=== PATIENT | male | born 1995 | race Caucasian/White ===

== ENCOUNTER 2025-06-03 19:16 | Emergency (ER) | payer BC, SELFPAY ==
--- NOTE | ~2025-06-03 | MR_ITS ---
CLINICAL HISTORY: back pain radiate to right leg, urinary retention MR lumbar spine without gadolinium Comparison: None Findings: L4-5 and L5-S1 disc compression with right-sided disc herniation resulting in right-sided foraminal stenosis. No acute fracture or pathologic bone lesion. Conus medullaris within normal limits. No significant degenerative change. Paraspinous musculature intact. IMPRESSION: L4-5 and L5-S1 disc compression with right-sided disc herniation resulting in right-sided foraminal stenosis This document has been electronically signed by: Jose Luis Peters MD on 06/03/2025 22:55:11
--- NOTE | 2025-06-03 19:38 | ED_ITS ---
HPI - General Adult General Chief complaint: Back Pain/Injury Stated complaint: pcp called back pain, burning sens on legs, numb Time Seen by Provider: 06/03/25 20:24 Source: patient Mode of arrival: ambulatory Limitations: no limitations History of Present Illness ED Provider: DR. Marinelli HPI narrative: This is a 30-year-old male sent by his PCP for evaluation of low back pain started few months ago, past today the pain is becoming severe, patient noted today that he has been having difficulty urinating , and increase numbness sensation radiating down to the right lower extremity. Patient declined any back trauma, no fever, no chills, no history of IV drug abuse, No history of back surgery. Patient declined risk of STDs, no urethral discharge , no history of kidney stones. Related Data Previous Rx's ?Medication ?Instructions ?Recorded dexamethasone 2 mg tablet 2 mg PO BID #4 tabs 06/04/25 Allergies Allergy/AdvReac Type Severity Reaction Status Date / Time ibuprofen (From ADVIL) Allergy Intermediate STOMACH Verified 06/03/25 19:41 PAIN latex (LATEX) Allergy Intermediate RASH Verified 06/03/25 19:41 Penicillins Allergy Hives Verified 06/03/25 19:41 Review of Systems 2 Review of Systems: All other systems are reviewed and are negative Constitutional: Reports as per HPI and Reports no additional constitutional complaints Eyes: Reports as per HPI and Reports no additional eye complaints Reports system reviewed and no additional complaints, except as documented Cardiovascular: Reports as per HPI and Reports no additional cardiovascular complaints Respiratory: Reports as per HPI and Reports no additional respiratory complaints Gastrointestinal: Reports as per HPI and Reports no additional gastrointestinal complaints Genitourinary: Reports no additional female genitourinary complaints Musculoskeletal: Reports no additional musculoskeletal complaints Skin/Breast: Reports system reviewed and no additional complaints, except as docu Psychiatric: Reports no additional psychiatric complaints Endocrine: Reports no additional endocrine complaints Hematologic/Lymphatic: Reports no additional hematologic/lymphatic complaints Allergic/Immunologic: Reports no additional allergic/immunologic complaints Reports system reviewed and no additional complaints, except as documented and Reports Abnormal speech present [facility] Social History Social History Smoked in Last 30 Days: No Use of substances other than those prescribed or required for medical reasons: No Advance Directives: No Advance Directives Information Provided: No Do you have a plan to hurt others: No Plan Physical Exam ED Vital Signs: Vital Signs - 24 hr 06/03/25 19:39 06/03/25 19:55 06/03/25 21:26 Temperature 98.5 F 97.5 F 98.3 F Pulse Rate 96 98 93 Respiratory Rate 18 18 16 Blood Pressure 131/69 108/79 104/83 Pulse Oximetry 99 99 98 Oxygen Delivery Method Room Air Room Air 06/04/25 00:32 Temperature 97.9 F Pulse Rate 86 Respiratory Rate 16 Blood Pressure 120/84 Pulse Oximetry 99 Oxygen Delivery Method Room Air BMI result Body Mass Index 26.6 Vital signs have been reviewed and appear to be correct. Blood pressure elevated. Heart rate normal. Respiratory rate normal. Temperature normal. Oxygen saturation normal. Appearance: Alert. Oriented X3. No acute distress. Head: Normal external exam. Normocephalic. Atraumatic. No Henderson signs noted. No raccoon eyes noted Eyes: PERRLA. EOMI. Conjunctiva and sclera normal. Eyelids normal. ENT: TM's Normal. Pharynx normal. Uvula midline. Moist mucous membranes. No trismus noted. No drooling noted. No muffled voice noted. Neck: Normal inspection. Neck supple. FROM. No adenopathy. Thyroid Normal. No meningeal signs. No neck mass noted. CVS: Normal heart rate and rhythm. Heart sound normal. No murmurs noted. Pulses normal throughout. Respiratory: No respiratory distress. Painless inspiration. Breath sounds normal. No wheezes/rales/rhonchi noted. Chest nontender. No accessory muscle usage noted or decreased air movement noted. Abdomen: Soft and nontender. Bowel sounds normal in all 4 quadrants. No distention noted. No organomegaly noted. No visible injury noted. Back: No CVA tenderness. Full range of motion noted. Skin: Skin warm and dry. Normal skin color. Normal skin turgor. No rashes/lesions/lacerations noted. Extremities: No lower extremity edema. Extremities exhibit normal range of motion. Extremities nontender. Neuro: Mental status: Normal attention, orientation, memory, and affect. Cranial nerves: Pupils are equal, round and reactive to light, EOMI, visual aceves are fall, face is symmetric, facial sensations are normal. Motor examination normal muscle tone, strength to 4 extremities. DTR are +2, planter's are flexor. Sensory exam; normal coordination, no ataxia, gait stable. Cerebellar exam: Zqngpf-dp-ljbz and qchx-ee-aywo is normal. Extrapyramidal system: No tremors, no rigidity with normal facial expressions. Pronator drift not present, perianal sensation is intact. Course Course Course Narrative: RME performed by Claudia Smith PA-C. Patient is a 30 year old assigned male at presenting to the emergency department with low back pain that radiates down his right leg, numbness in his groin, difficulty urinating. Detailed physical exam and review of systems are deferred to the primary products inspectors. Imaging ordered. Patient placed back in the waiting room pending room availability and results. Reevaluation(s) Reevaluation #1: 30-year-old male with 4 months of back pain that recently got worse now is complaining of difficulty urinating and increased subjective numbness and weakness to the right lower extremity. Raise the concern epidural occupying lesion, abscess is not likely but possibly herniated desk, therefore emergent MRI was ordered, MRI was ordered at 08:45. no urinary incontinence, no urinary infection, repeat neuro exam is intact with no deficit, MRI reveals multiple level disc compression with right-sided disc herniation. Patient was given Decadron in the ED will be discharged home on few days of Decadron, will refer to Dr. Wheeler. Time: 00:41 Medications Administered Discontinued Medications Generic Name Dose Route Start Last Admin Trade Name Freq PRN Reason Stop Dose Admin Dexamethasone 10 mg 06/04/25 00:04 06/04/25 00:31 Dexamethasone 2 Mg Tablet PO 06/04/25 00:05 10 mg ONCE ONE Administration Diazepam 5 mg 06/03/25 20:31 06/03/25 20:46 Diazepam 5 Mg Tablet PO 06/03/25 20:32 5 mg ONCE ONE Administration Medical Decision Making Differential Diagnosis Differential Diagnoses: The differential diagnosis associated with the presentation includes ( lumbar radiculopathy, herniated disc, less likely epidural abscess, UTI.) Admission/Observation Consideration of admission/observation: Escalation of care including admission/observation considered Lab Data MDM Lab Attestation statement: I reviewed the patient's lab results. 06/03/25 20:01 06/03/25 20:01 Labs: Lab Results 06/03/25 06/03/25 06/04/25 Range/Units 20:01 20:39 00:05 WBC 7.8 (4.8-10.8) X10*3/uL RBC 4.90 (4.60-5.80) X10*6/uL Hgb 13.8 L (14.0-18.0) g/dl Hct 39.5 L (42.0-52.0) % MCV 80.6 (80.0-98.0) fL MCH 28.2 (27.0-33.0) pg MCHC 34.9 (31.0-36.0) g/dl RDW 12.8 (11.0-16.0) % Plt Count 248 (160-400) X10*3/uL MPV 8.4 L (9.4-12.4) fL Immature Gran % (Auto) 0.3 (0.0-0.4) % Neut % (Auto) 56.0 (45-73) % Lymph % (Auto) 33.0 (20-40) % [place] % (Auto) 9.4 (2-11) % Eos % (Auto) 0.8 (0-4) % Baso % (Auto) 0.5 (0-2) % Lymph # (Auto) 2.6 (1.2-4.9) X10*3/uL [place] # (Auto) 0.7 (0.1-1.2) X10*3/uL Eos # (Auto) 0.1 (0.0-0.4) X10*3/uL Baso # (Auto) 0.0 (0.0-0.2) X10*3/uL Abs Immat Gran (auto) 0.02 (0.00-0.03) X10*3/uL Absolute Neuts (auto) 4.4 (2.0-8.3) x10*3/uL Absolute Nucleated RBC 0.000 (0.0-0.012) X10*3/uL Nucleated RBC % (auto) 0.0 (0.0-0.2) /100WBC Sodium 142 (135-145) mmol/L Potassium 3.5 (3.3-5.1) mmol/L Chloride 109 H (96-108) mmol/L Carbon Dioxide 25 (22-29) mmol/L Anion Gap 12 (12-20) BUN 15 (9-16) mg/dL Creatinine 0.98 (0.5-1.4) mg/dL Estim Creat Clear Calc 115.2 Estimated GFR > 60 POC Glucose 84 (60-115) mg/dL Random Glucose 53 L* (60-115) mg/dL Calcium 9.3 (8.4-10.2) mg/dL Magnesium 2.3 (1.6-2.6) mg/dL Total Bilirubin 0.7 (0.0-1.0) mg/dL AST 31 (5-37) U/L ALT 51 H (0-40) U/L Alkaline Phosphatase 94 (39-117) U/L Total Protein 8.4 H (6.5-8.0) g/dL Albumin 4.7 (3.5-5.0) g/dL Urine Color Yellow Urine Appearance Clear Urine pH 6.0 (5.0-9.0) Ur Specific [place] 1.020 (1.005-1.025) Urine Protein Negative (Neg-Trace) mg/dL Urine Glucose (UA) Negative (Negative) mg/dL Urine Ketones Negative (Negative) mg/dL Urine Blood Negative (Negative) Urine Nitrite Negative (Negative) Ur Leukocyte Esterase Negative (Negative) Independent Interpretation I performed an independent interpretation of an: MRI ( Lumbar spine:L4-5 and L5-S1 disc compression with right-sided disc herniation resulting in right- sided foraminal stenosis) Radiology Impression Discussion of test interpretation with radiology: I have reviewed the radiologist's reading. Discharge Plan Discharge Clinical Impression: Lumbar radiculopathy, Sciatica Patient Disposition: Home, Self-Care Instructions: Lumbar Radiculopathy (ED) Prescriptions: New dexamethasone 2 mg tablet 2 mg PO BID Qty: 4 0RF Referrals: Zaria Albert DO [Primary Care Provider, Family Practice] Lucio Guerrero MD, PhD [Physician, Neuro Spine] Print Language: Indian
[2025-06-03 19:39] VITALS: BP 131/69; PULSE 96; RESP 18; TEMP 36.9; O2SAT 99; BMI 26.6
[2025-06-03 19:55] VITALS: BP 108/79; PULSE 98; RESP 18; TEMP 36.4; O2SAT 99
[2025-06-03 20:07] LABS: MANUAL DIFF FLAG NO
[2025-06-03 20:10] LABS: Hematocrit 39.5 % (42.0-52.0); Hemoglobin 13.8 g/dl (14.0-18.0); Imm Gran Abs Auto 0.02 X10*3/uL (0.00-0.03); Imm Gran Pct Auto 0.3 % (0.0-0.4); Lymphocytes Absolute Auto 2.6 X10*3/uL (1.2-4.9); Mean Corpuscular HGB Conc 34.9 g/dl (31.0-36.0); Mean Corpuscular Hemoglobin 28.2 pg (27.0-33.0); Mean Corpuscular Volume 80.6 fL (80.0-98.0); NRBC Abs Auto 0.000 X10*3/uL (0.0-0.012); NRBC Pct Auto 0.0 /100WBC (0.0-0.2); Platelet Count 248 X10*3/uL (160-400); Red Blood Count 4.90 X10*6/uL (4.60-5.80); White Blood Count 7.8 X10*3/uL (4.8-10.8)
[2025-06-03 20:31] LABS: Alanine Aminotransferase 51 U/L (0-40); Albumin Level 4.7 g/dL (3.5-5.0); Alkaline Phosphatase 94 U/L (39-117); Anion Gap 12 (12-20); Aspartate Amino Transferase 31 U/L (5-37); Blood Urea Nitrogen 15 mg/dL (9-16); Calcium 9.3 mg/dL (8.4-10.2); Carbon Dioxide 25 mmol/L (22-29); Chloride 109 mmol/L (96-108); Creatinine Clr Calc Pharmacy 115.2; Estimated Glomerular Filt Rate > 60; Magnesium 2.3 mg/dL (1.6-2.6); Potassium 3.5 mmol/L (3.3-5.1); Sodium 142 mmol/L (135-145); Total Protein 8.4 g/dL (6.5-8.0)
[2025-06-03 20:44] LABS: Glucose, Whole Blood 84 mg/dL (60-115)
--- NOTE | 2025-06-03 20:48 | PC.NURSE ---
patient to MRI at this time
--- NOTE | 2025-06-03 21:24 | PC.NURSE ---
patient returned from MRI at this time
[2025-06-03 21:26] VITALS: BP 104/83; PULSE 93; RESP 16; TEMP 36.8; O2SAT 98
[2025-06-04 00:13] LABS: Appearance Urine Clear; Glucose Urine UA Negative (Negative); PH 6.0 (5.0-9.0); Specific Gravity - Urine 1.020 (1.005-1.025)
[2025-06-04 00:32] VITALS: BP 120/84; PULSE 86; RESP 16; TEMP 36.6; O2SAT 99
[2025-06-04 01:12] VITALS: BP 120/84; PULSE 86; RESP 16; TEMP 36.6; O2SAT 99
[2025-06-04 10:50] LABS: CT PCR Urine NOT DETECTED (Not Detect.); NG PCR Urine NOT DETECTED (Not Detect.)
== END 2025-06-04 01:13 | disposition home or self-care (01) ==
PROVIDERS: Physician Assistant Medical; Emergency Provider Emergency Medicine; PCP Family Medicine
DX: M54.16 Radiculopathy, lumbar region (principal); M54.30 Sciatica, unspecified side; R39.198 Other difficulties with micturition; M54.50 Low back pain, unspecified; R20.0 Anesthesia of skin; Z79.899 Other long term (current) drug therapy
CPT/HCPCS: 36415; 72148; 80053; 81003; 82947; 83735; 85025; 87491; 87591; 99284; 99285; J8540

== ENCOUNTER → 2025-06-03 20:30 | Outpatient (BNV) | payer BC, SELFPAY | PROVIDERS: Emergency Provider Emergency Medicine; PCP Family Medicine; Visit Provider Student in an Organized Health Care Education/Training Program | DX: M51.26 Other intervertebral disc displacement, lumbar region (principal); M51.27 Other intervertebral disc displacement, lumbosacral region | CPT/HCPCS: 72148 ==

== ENCOUNTER 2025-06-13 10:13 | Outpatient (AMB) | payer BC, SELFPAY ==
--- OUTSIDE RECORDS SUMMARY | 2017-05-26 09:57 | XMS_ITS | Continuity of Care Document ---
Author Organization [facility] Address [address] [place] [address] Phone Care Team Providers Care Kitchen Worker Name Role Phone Nurse, [facility] Unavailable Unavailable Advance Directives Directive Yes / No Effective Date File Name No Information Encounters Encounter Description Practice Location Reason(s) For Visit Diagnoses Date Provider Providers Copied on Encounter [facility], [address], [place], [place], [id number], [place] tel:[phone] [facility] No Information Nurse [facility]. [address] [place], [address], [place]. tel:[phone] Family History Family Member Type Diagnosis Age At Onset No Information Payers Payer name Insurance type Covered democrat ID Authoriza tion(s) No Information Social History Type Description Quantity Date Captured Comments Sex Male Smoking Status No Information Chief Complaint And Reason For Visit No Information Reason For Referral Reason For Referral No Information Plan Of Treatment Date Type Action Status Goal HIV Routine Screening. Due o n due Goal Dental exam. Due on 017 due Goal Tdap. Due on due Goal Depression screening. Due on due Goal Td vaccine. Due on 17 due Goal Influenza vaccine. Due on due History Of Present Illness Encounter Date Complaint History Of Prese nt Illness No Information Functional Status Date Functional Assessmen t No Information Instructions Date Instruction Additional Infor mation No Information Assessments Type Assessment Date No Information Patient Care Teams Name Effective Dates (start - stop) Status Members No Information
--- NOTE | 2025-06-13 10:18 | A.SPINEOV_ITS ---
Intake Visit Reasons: ED f/u 06/03/24 Intake Note: Mr. Eliecer Morgan is here today following up from an ED visit @ [facility] [place]. Rn Admissions Required: No Allergies ibuprofen (From ADVIL) Allergy (Intermediate, Verified 06/03/25 19:41) STOMACH PAIN latex (LATEX) Allergy (Intermediate, Verified 06/03/25 19:41) RASH Penicillins Allergy (Verified 06/03/25 19:41) Hives Assessment & Plan Assessment & Plan (1) Lumbar radiculopathy: Code(s): M54.16 - Radiculopathy, lumbar region Category: Medical Plan Dear colleague, Thank you for referring Madalyn to our office today. He is a pleasant 30-year-old male who comes in today for evaluation of low back pain and shooting pain down his right lower extremity. He reports that this 1st began back in February after he bought a new home began renovating it earlier this year. He states that the pain back in February was much more severe than it is today. Back in February he was experiencing fairly debilitating low back pain and shooting pain down the lateral aspect of his right lower extremity. Today when describing his pain he reports it as more low-grade in nature, and states that it occasionally will radiate into his posterior right buttocks, and down the lateral aspect of his right leg terminating near the knee. He denies any numbness/tingling associated with the pain. He states that the pain is worsened by prolonged sitting or standing, in his relieved by application of a heating pad. He has attempted a course of Decadron, and ibuprofen with only modest relief of his symptoms. He is currently engaging in physical therapy in an attempt to address his symptoms in his also being seen by a chiropractor. He denies any perineal numbness or bowel/bladder incontinence. PMH: Gastric band surgery, cholecystectomy. Social hx: The patient does not smoke, reports no substance use. Medications: Zepbound Allergies: Ibuprofen, latex, penicillin. Physical exam: The patient has full 5/5 strength of his upper and lower extremities. He ambulates well with a nonantalgic non spastic gait. He has no significant sensational deficits to light touch on examination. His reflexes are 2+ intact diffusely. (-) bilateral straight leg raise. (-) Olea's. (-) clonus. Imaging review: MRI of the lumbar spine completed here at [facility] shows some posterior disc bulging at L4-5, L5-S1. There is mild-moderate right-sided foraminal stenosis L4-5, and moderate right-sided foraminal stenosis at L5-S1 as a result of the disc bulging. Impression: Madalyn is a pleasant 30-year-old male who comes in today for evaluation of low back pain and shooting pain in his right lower extremity beginning in February of this year. He identifies an inciting incident of increased activity when moving into / renovating his home. He certainly has some degree of right-sided foraminal stenosis result of the posterior disc bulging seen at L4-5 and L5-S1. In our younger patients in his very common for her disc bulging/disc herniations to resorb on their own over time without surgical intervention. In the absence of profound numbness or weakness on examination, I believe the patient would be best served by attempting a course of cortisone injections with our colleagues in pain management. I will place the referral for him. Thank you for allowing us to care for your patient. The total time spent with this visit with this patient was 45 minutes reviewing history, physical exam, MRI imaging review, and implementation of treatment plan or further diagnostic testing Jaxson Guerrero MD,PhD [facility] Coding Level of Care Code New Pt Level 4 (67358) Diagnoses Lumbar radiculopathy M54.16
--- OUTSIDE RECORDS SUMMARY | 2025-06-13 10:56 | XMS_ITS ---
Author Name [facility] Organization Unknown Care Team Organization Name Specialty Phone Email Start Date End Da te [facility] ISAAC SANDERS Primary Care [email or web address] 01/05/2023 4
--- OUTSIDE RECORDS SUMMARY | 2025-06-13 10:56 | XMS_ITS | Clinical Summary ---
Author Organization [address] [facility] Address [address] [place] [address] Phone Care Team Providers Care Adding Machine Servicer Name Role Phone Fany Daniel NP Primary Care Provider [phone] Allergies Active Allergy Reactions Criticality Noted Date Comments Latex 08/30/2018 Nsaids (Non-Steroidal Anti-I nflammatory Drug) 12/12/2017 Penicillins Hives High 09/15/2021 Medications cetirizine (ZyrTEC) 10 mg tablet Take 1 Tablet by mouth daily. 4 Active escitalopram (LEXAPRO) 5 mg tablet Take 1 Tablet by mouth daily. 4 Active fluticasone propionate (FLONASE) 50 mcg/actuation nasal spray 1 spray per nostril twice per day, as needed for nasal congestion 4 Active hydrOXYzine HCL (ATARAX) 25 mg tablet Take 1 Tablet by mouth 3 times daily as needed for Anxiety. 3 Active pantoprazole (PROTONIX) 40 mg EC tablet Take 1 Tablet by mouth daily as needed (GERD). 3 Active sildenafil (REVATIO) 20 mg tablet 2-3 tabs on hour prior to intercourse prn 2 Active Active Problems Problem Noted Date Diagnosed Date Enlarged tonsils 05/06/2023 Erectile dysfunction 05/06/2023 Seasonal allergies 05/06/2023 Chronic tonsillitis 01/12/2022 Overview (10/17/2024): Follows with ENT. To be scheduled for tonsillectomy. 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 UPPER GASTROINTESTINAL ENDOSCOPY 2015 PROCEDURE: SD UPPER GI ENDOSCOPY PERFORMED; COMMENT: Justice; investigaiton of heartburn UPPER GASTROINTESTINAL ENDOSCOPY 12/19/2020 PROCEDURE: SD UPPER GI ENDOSCOPY PERFORMED; COMMENT: Visually normal on current treatment with pantoprazole 40 mg once a day. Medical History Medical History Date Comments Znlxk-Vwkvwucer-Ywdbr syndrome 12/12/2017 D X:Mleoa-Crfphzkxx-Sopbd syndrome; COMMENT: S/p ablation 03/2015 GERD (gastroesophageal reflu x disease) 12/12/2017 DX:GERD (gastroesophageal re flux disease) Plantar fasciitis, bilateral 12/13/2017 DX: Plantar fasciitis, bilateral; COMMENT: Xray with no acute findings, followed with podiatry Obesity (BMI 30-39.9) 12/12/2017 DX:Obesity (BMI 30-39.9); COMMENT: S/p gastric lap band 07/2018 Hx of laparoscopic gastric banding 09/18/2018 DX:Hx of laparoscopic gastric banding; COMMENT: 07/2018 Anxiety state DX:Anxiety state Family History Medical History Relation Name Comments Hyperthyroidism Father Esophageal cancer Maternal Grandmother Obesity Mother Colon cancer Neg Hx Stomach cancer Neg Hx Relation Name Status Comments Father Alive Maternal Grandmother Mother Alive Social History Tobacco Use Types Packs/Day Years Used Date Smoking Tobacco: Never Smokeless Tobacco: Never Alcohol Use Standard Drinks/Week Comments Yes 0 (1 standard drink = 0.6 oz pur e alcohol) Sex and Gender Information Value Date Recorded Sex Assigned at Not on file Legal Sex Male 12:53 PM EST Gender Identity Not on file Sexual Orientation Not on file Obstetrics History Last Filed Vital Signs Vital Sign Reading Time Taken Comments Blood Pressure 112/83 03/02/2024 11:45 AM EDT Pulse 89 02/21/2024 10:16 AM EDT Temperature - - Respiratory Rate - - Oxygen Saturation - - Inhaled Oxygen Concentration - - Weight 104 kg (230 lb) 12/10/2024 1:55 PM EST Height 180.3 cm (5' 11 ) 12/10/2024 1:55 PM EST Body Mass Index 32.08 12/10/2024 1:55 PM EST Plan of Treatment Health Maintenance Due Date Last Done Comments DTaP,Tdap,and Td Vaccines (1 - Tdap) 02/15/2012 Social Influencers of Health Screening 09/28/2022 COVID-19 Vaccine (4 - 2023-2 5 season) 2024 09/11/2021, 12/22/2020, 11/24/2020 Depression Screening 10/31/2024 Influenza Vaccine (#1) 2025 09/11/2021 Cholesterol Screening (Lipid Panel) 05/09/2028 05/09/2023 HIV Screening Completed 03/02/2022 Hepatitis C Screening Completed 03/02/2022 Hepatitis A Vaccines Aged Out 11/05/2022, 04/20/2022, 03/17/2022 No longer eligible based on patient's age to complete this topic Hepatitis B Vaccines Completed 11/05/2022, 04/20/2022, 03/17/2022 HIB Vaccines Aged Out No longer eligi ble based on patient's age to complete this topic HPV Vaccines Aged Out No longer eligi ble based on patient's age to complete this topic IPV Vaccines Aged Out No longer eligi ble based on patient's age to complete this topic MMR Vaccines Aged Out No longer eligi ble based on patient's age to complete this topic Meningococcal ACWY Vaccine Aged Out N o longer eligible based on patient's age to complete this topic Meningococcal B Vaccine Aged Out No l onger eligible based on patient's age to complete this topic Pneumococcal Vaccine: Pediatrics (0 to 5 Years) and At-Risk Patients (6 to 49 Years) Aged Out No longer eligible b ased on patient's age to complete this topic RSV Immunization Patients Under 20 months Aged Out No longer eligible b ased on patient's age to complete this topic Varicella Vaccines Aged Out No longer eligible based on patient's age to complete this topic Procedures Procedure Name Priority Date/Time Associated Diagnosis Comments LIPID PANEL Routine 05/09/2023 HEPATITIS C SCREENING Routine 03/02/2022 HIV SCREENING Routine 03/02/2022 from Last 3 Months or Most Recently Relevant to Health Maintenance Results * (ABNORMAL) Lipid panel (05/09/2023) Pathologist [facility] LDL/HDL Ratio 4 0 - 4 Triglycerides 136 0 - 150 mg/dL Cholesterol 148 0 - 200 mg/dL HDL 39(A) >=40 mg/dL LDL Cholesterol 82 0 - 100 mg/dL Blood Venous blood specimen / Unknown Historical Provider LAB BLOOD ORDERABLES Wendy l Result * HIV Screening (03/02/2022) Pathologist [facility] HIV Screening Abstracted Historical Provider HEALTH MAINTENANCE Final Result * Hepatitis C Screening (03/02/2022) Pathologist [facility] Hepatitis C Screening Abstracted Historical Provider HEALTH MAINTENANCE Final Result from Last 3 Months or Most Recently Relevant to Health Maintenance Insurance [facility] Care Teams Adding Machine Servicer Relationship Specialty Start Date End Date Fany Daniel NP [address] [place] [id number] PCP - General 12/24/24
--- OUTSIDE RECORDS SUMMARY | 2025-06-13 10:56 | XMS_ITS | Clinical Summary ---
Author Organization [facility] Address [address] [facility] [address] [place] [phone] Phone Care Team Providers Care Television Maintenance Worker Name Role Phone Elli Calvillo MD Primary Care Provider [phone] Allergies Active Allergy Reactions Criticality Noted Date Comments Ibuprofen 08/04/2021 Latex 10/26/2019 Nsaids (Non-Steroidal Anti-I nflammatory Drug) 12/12/2017 Medications No known medications Social History Tobacco Use Types Packs/Day Years Used Date Smoking Tobacco: Never Smokeless Tobacco: Never Alcohol Use Standard Drinks/Week Comments Never 0 (1 standard drink = 0.6 oz pur e alcohol) Education Answer Date Recorded Are you interested in more education? Not on kareen e 02/25/2023 Are you concerned about learning? Not on file 02/25/2023 No 02/25/2023 No 02/25/2023 Digital Access Answer Date Recorded No 03/29/2023 No 03/29/2023 Reliable internet access at home? Not on file 03/29/2023 Device with a working camera? Not on file Sex and Gender Information Value Date Recorded Sex Assigned at Male 10/26/2019 4:49 PM EST Legal Sex Male 4:41 PM EST Gender Identity Male 10/26/2019 4:49 PM EST Sexual Orientation Lesbian or Romano 10/26/2019 4: 49 PM EST Last Filed Vital Signs Vital Sign Reading Time Taken Comments Blood Pressure 117/76 08/04/2021 8:08 PM EDT Pulse 90 08/04/2021 8:08 PM EDT Temperature 36.3 C (97.3 F) 08/04/2021 8:08 PM EDT Respiratory Rate 18 08/04/2021 8:08 PM EDT Oxygen Saturation 99% 08/04/2021 8:08 PM EDT Inhaled Oxygen Concentration - - Weight 120.2 kg (265 lb) 08/04/2021 4:50 PM EDT Height 180.3 cm (5' 11 ) 08/04/2021 4:50 PM EDT Body Mass Index 36.96 08/04/2021 4:50 PM EDT Plan of Treatment Not on file Medical Devices Not on file Insurance [facility] Care Teams Television Maintenance Worker Relationship Specialty Start Date End Date Elli Calvillo MD [address] [place] [id number] PCP - General Internal Medicine 10/26/19 Additional Source Comments The information contained in this document represents components of the legal health record. It is not the complete legal health record.[facility]
== END 2025-06-13 10:31 | disposition home or self-care (01) ==
PROVIDERS: PCP Family Medicine; Visit Provider Physician Assistant
DX: M54.16 Radiculopathy, lumbar region (principal)
CPT/HCPCS: 99204

== ENCOUNTER 2025-06-18 11:07 | Outpatient (RCR) | payer BC, SELFPAY | END 2025-10-21 10:39 | disposition home or self-care (01) | LOC: HO.PT 11:07 | PROVIDERS: PCP Family Medicine; Visit Provider Nurse Practitioner Family | DX: M25.511 Pain in right shoulder (principal); M25.512 Pain in left shoulder; M54.2 Cervicalgia; M54.50 Low back pain, unspecified | CPT/HCPCS: 97110; 97161 ==

== ENCOUNTER 2025-07-11 12:58 | Outpatient (AMB) | payer BC, SELFPAY ==
--- OUTSIDE RECORDS SUMMARY | 2017-05-26 09:57 | XMS_ITS | Continuity of Care Document ---
Author Organization [facility] Address [address] [place] [address] Phone Care Team Providers Care Licensed Master Social Worker Name Role Phone Nurse, [facility] Unavailable Unavailable Advance Directives Directive Yes / No Effective Date File Name No Information Encounters Encounter Description Practice Location Reason(s) For Visit Diagnoses Date Provider Providers Copied on Encounter [facility], [address], [place], [place], [id number], [place] tel:[phone] [facility] No Information Nurse [facility]. [address] [place], [address], [place]. tel:[phone] Family History Family Member Type Diagnosis Age At Onset No Information Payers Payer name Insurance type Covered libertarian ID Authoriza tion(s) No Information Social History [...]
--- NOTE | 2025-07-11 13:06 | A.OFFVIS_ITS ---
Vital Signs 07/11/25 13:10 Height 5 ft 11 in Weight 192 lb 6 oz BMI 26.8 BP 119/79 Blood Pressure Location Rt brachial Position Sitting Pulse 79 Intake Visit Reasons: Radiculopathy, lumbar region Intake Note: Pain today 10 Reverse Engineer Required: No Accompanied by: Self / Same As Patient Allergies ibuprofen (From ADVIL) Allergy (Intermediate, Verified 06/03/25 19:41) STOMACH PAIN latex (LATEX) Allergy (Intermediate, Verified 06/03/25 19:41) RASH Penicillins Allergy (Verified 06/03/25 19:41) Hives HPI Comments Details: The patient is a 30-year-old male presenting with low back pain. The pain began approximately 2-3 months ago during increased physical activity related to renovating his home. He developed right-sided low back pain radiating to his right leg. The pain is described as constant, throbbing, stabbing, sharp, radiating, spreading, tight, squeezing, and aching. It is exacerbated by walking, bending, twisting, lifting, and weather changes, and he rates the pain as 10 out of 10. The patient has tried ibuprofen and Decadron with minimal and temporary relief. He is currently undergoing physical therapy and has seen a chiropractor without significant pain relief. The patient denies any significant weakness, bladder or bowel dysfunction or saddle anesthesia. Patient denies previous spine surgery or injections. He was evaluated by [facility] and recommended to undergo a course of cortisone injections for symptomatic relief. - Onset: Approximately 2-3 months ago during home renovation activities - Quality: Constant, throbbing, stabbing, sharp, radiating, spreading, tight, squeezing, aching - Location: Right-sided low back pain radiating to the right leg - Exacerbating factors: Walking, bending, twisting, lifting, weather changes - Severity: Rated as 10/10 - Affect: Pain affects his sleep, mood, social interactions, mobility and daily functioning - Analgesia: Current medications include ibuprofen and Decadron with minimal relief; pain rated 10/10 - Adverse Effects: None reported - Activities of Daily Living: Pain interferes with walking, bending, twisting, lifting - Aberrant Drug Related Behaviors: None reported [facility] Jaxson Foster PA-C 06/13/25: Imaging review: MRI of the lumbar spine completed here at [facility] shows some posterior disc bulging at L4-5, L5-S1. There is mild-moderate right-sided foraminal stenosis L4-5, and moderate right-sided foraminal stenosis at L5-S1 as a result of the disc bulging. Impression: Madalyn is a pleasant 30-year-old male who comes in today for evaluation of low back pain and shooting pain in his right lower extremity beginning in February of this year. He identifies an inciting incident of increased activity when moving into / renovating his home. He certainly has some degree of right-sided foraminal stenosis result of the posterior disc bulging seen at L4-5 and L5-S1. In our younger patients in his very common for her disc bulging/disc herniations to resorb on their own over time without surgical intervention. In the absence of profound numbness or weakness on examination, I believe the patient would be best served by attempting a course of cortisone injections with our colleagues in pain management. I will place the referral for him. [facility] Medical History (Updated 07/13/25 @ 23:58 by GUILLERMO Bailon) Low back pain Left knee pain Low HDL (under 40) Vitamin D deficiency History of Ppqyj-Irmlsayew-Obdjf (WPW) syndrome Chronic GERD Anxiety disorder On pre-exposure prophylaxis for HIV Elevated LFTs Surgical History (Updated 07/11/25 @ 13:26 by Kacie Rangel) Hx of cholecystectomy Status post sleeve gastrectomy Social History (Updated 07/11/25 @ 13:26 by Kacie Rangel) Patient Tobacco Use Status: Never used Tobacco Review of Systems Const Details: - Musculoskeletal: Reports right-sided low back pain radiating to the right leg - Gastrointestinal: Denies bladder or bowel dysfunction - Neurological: Denies saddle anesthesia All systems reviewed & are unremarkable except as noted in HPI and below Physical Exam Vital Signs: Last Vital Signs Pulse 79 07/11/25 13:10 BP 119/79 07/11/25 13:10 BMI result Body Mass Index 26.8 General: Appears afebrile. Alert and oriented. Mood and affect appropriate. Follows and participates in conversation appropriately. Respiratory effort is unlabored. No cough. Able to transition from sit to stand unassisted. Ambulates with bilaterally normal heel strike and toe off. General: Yes no CVA tenderness Back/Spine/Pelvis Other: Patient is able to walk and stand on heels and tip toes with mild difficulty on the right, otherwise demonstrating good motor tone. No limping. Limited lumbar ROM due to pain. Demonstrates 5/5 strength of quadriceps bilaterally as well as flexion/dorsiflexion of bilateral feet against resistance. 2+ pedal pulses bilaterally. Straight leg rise with dorsiflexion negative bilaterally. +2 patellar and achilles reflexes bilaterally. Facet loading test positive bilaterally. Lisa sign positive on the right, Francisco?s, Pelvic compression and Stinchfield tests are negative bilaterally. No groin pain with I/E hip rotations. Valsalva maneuver negative. Back: no CVA tenderness Cervical Spine: cervical ROM normal, cervical muscular tenderness, No Cervical spine scars present and No Cervical spine tenderness Thoracic/Lumbar Spine: thoracic and lumbar spine normal to inspection, No Thoracic/lumbar spine scar(s), Lasegue's sign negative, straight leg raise negative bilaterally, pain with thoraco-lumbar ROM, paraspinal muscle tenderness on the right greater than left, thoraco-lumbar ROM limited, No thoracic spinal tenderness and lumbar spinal tenderness (L4-S1) Pelvis: buttock tenderness on the right Sacroiliac joints: on the right tender to palpation and on the left nontender Extrem General: Yes capillary refill normal, Yes no clubbing, cyanosis or edema and Yes no calf tenderness Results Reviewed Results Reviewed: MR lumbar spine wo con 06/03/25 CLINICAL HISTORY: back pain radiate to right leg, urinary retention Comparison: None Findings: L4-5 and L5-S1 disc compression with right-sided disc herniation resulting in right-sided foraminal stenosis. No acute fracture or pathologic bone lesion. Conus medullaris within normal limits. No significant degenerative change. Paraspinous musculature intact. IMPRESSION: L4-5 and L5-S1 disc compression with right-sided disc herniation resulting in right-sided foraminal stenosis Assessment & Plan Assessment & Plan (1) Lumbar radiculopathy: Code(s): M54.16 - Radiculopathy, lumbar region Category: Medical (2) Lumbar disc herniation with radiculopathy: Code(s): M51.16 - Intervertebral disc disorders with radiculopathy, lumbar region Category: Medical (3) Low back pain: Code(s): M54.50 - Low back pain, unspecified Category: Medical (4) Neuroforaminal stenosis of lumbar spine: Code(s): M48.061 - Spinal stenosis, lumbar region without neurogenic claudication Category: Medical Plan The plan is to proceed with a right L4-L5 and L5-S1 transforaminal epidural steroid injection under local fluoroscopy to address the patient's low back and right leg symptoms, as recommended by Neurosurgery. Expectations, risks and benefits were reviewed. Patient is aware he will be contacted to schedule this procedure. All questions and concerns have been answered and patient agreed with the treatment plan. Follow up after injections and sooner as needed. Patient was informed and verbally consented to the use of an ambient scribe for clinic note documentation during this visit. Coding Level of Care Code New Pt Level 4 (18506) Diagnoses Lumbar radiculopathy M54.16 Lumbar disc herniation with radiculopathy M51.16 Low back pain M54.50 Neuroforaminal stenosis of lumbar spine M48.061
[2025-07-11 13:10] VITALS: BP 119/79; PULSE 79; BMI 26.8
--- OUTSIDE RECORDS SUMMARY | 2025-07-11 17:03 | XMS_ITS | Clinical Summary ---
Author Organization [facility] Address [address] [facility] [address] [place] [phone] Phone Care Team Providers Care Data Control Assistant Name Role Phone Elli Calvillo MD Primary Care Provider [phone] Allergies Active Allergy Reactions Criticality Noted Date [...] file Medical Devices Not on file Insurance [facility] Care Teams Data Control Assistant Relationship Specialty Start Date End Date Elli Calvillo MD [address] [place] [phone] PCP - General Internal Medicine 10/26/19 Additional Source Comments The information contained in this document represents components of the legal health record. It is not the complete legal health record.[facility]
== END 2025-07-11 13:34 | disposition home or self-care (01) ==
LOC: HO.PMC 12:58
PROVIDERS: PCP Family Medicine; Visit Provider Nurse Practitioner Family
DX: M51.16 Intervertebral disc disorders with radiculopathy, lumbar region (principal); M54.50 Low back pain, unspecified; M48.061 Spinal stenosis, lumbar region without neurogenic claudication
CPT/HCPCS: 99204

== ENCOUNTER 2025-08-29 06:08 | Outpatient (REF) | payer BC, SELFPAY ==
--- NOTE | ~2025-08-29 | FL_ITS ---
EXAMINATION: FL GUIDANCE ONLY HISTORY: M51.16 - Intervertebral disc disorders with radiculopathy, lumbar region COMPARISON: None available. TECHNIQUE: Fluoroscopy time: 20 seconds. Cumulative Dose: 5.20 mGy. DAP: 391.60 mGycm2 Images: 4. FINDINGS: Fluoroscopic spot films of the lumbar spine demonstrate a needle in the region of the right L5 pedicle. FL/FL guidance in treatment room IMPRESSION: Fluoroscopy during procedure. Please see procedure report for additional information. Electronically signed by: Dylan Shabazz MD 08/29/2025 02:32 PM EDT
--- OUTSIDE RECORDS SUMMARY | 2025-08-29 06:10 | XMS_ITS | Clinical Summary ---
Author Organization [facility] Address [address] [facility] [address] [place] [phone] Phone Care Team Providers Care Hot Tar Roofer Name Role Phone Elli Calvillo MD Primary Care Provider [phone] Allergies Active Allergy Reactions Criticality Noted Date [...] file Medical Devices Not on file Insurance [facility] Care Teams Hot Tar Roofer Relationship Specialty Start Date End Date Elli Calvillo MD [address] [place] [id number] PCP - General Internal Medicine 10/26/19 Additional Source Comments The information contained in this document represents components of the legal health record. It is not the complete legal health record.[facility]
--- OUTSIDE RECORDS SUMMARY | 2025-08-29 06:10 | XMS_ITS | Clinical Summary ---
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 UPPER GASTROINTESTINAL ENDOSCOPY 2015 PROCEDURE: MA UPPER GI ENDOSCOPY PERFORMED; COMMENT: Justice; investigaiton of heartburn UPPER GASTROINTESTINAL ENDOSCOPY 12/19/2020 PROCEDURE: MA UPPER GI ENDOSCOPY PERFORMED; COMMENT: Visually normal on current treatment with pantoprazole 40 mg once a day. 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 D X:Aofjh-Azappmwck-Doari syndrome; COMMENT: S/p ablation 03/2015 GERD (gastroesophageal [...] DTaP,Tdap,and Td Vaccines (1 - Tdap) 02/15/2012 HPV Vaccines (1 - 3-dose SCD M series) 02/15/2020 Social Influencers of Health Screening 09/28/2022 Depression Screening 10/31/2024 COVID-19 Vaccine (4 - 2024-2 6 season) 2025 09/11/2021, 12/22/2020, 11/24/2020 Influenza Vaccine (#1) 2025 09/11/2021 Cholesterol Screening (Lipid Panel) 05/09/2028 05/09/2023 RSV Immunization Adult Patients (1 - 1-dose 75+ series) 02/15/2068 HIV Screening Completed 03/02/2022 Hepatitis C Screening [...] Results * (ABNORMAL) Lipid panel (05/09/2023) Pathologist [facility] LDL/HDL Ratio 4 0 - 4 Triglycerides 136 0 - 150 mg/dL Cholesterol 148 0 - 200 mg/dL HDL 39(A) >=40 mg/dL LDL Cholesterol 82 0 - 100 mg/dL Blood Venous blood specimen / Unknown Historical Provider LAB BLOOD ORDERABLES Wendy l Result * HIV Screening (03/02/2022) Pathologist [facility] HIV Screening Abstracted Historical Provider HEALTH MAINTENANCE Final Result * Hepatitis C Screening (03/02/2022) Pathologist [facility] Hepatitis C Screening Abstracted Historical Provider HEALTH MAINTENANCE Final Result from Last 3 Months or Most Recently Relevant to Health Maintenance Insurance [facility] Care Teams Remarketing Rep Relationship Specialty Start Date End Date Fany Daniel NP [address] [place] [phone] PCP - General 12/24/24
== END 2025-08-29 06:09 | disposition home or self-care (01) ==
LOC: CF 06:08
PROVIDERS: Visit Provider Internal Medicine
DX: M51.16 Intervertebral disc disorders with radiculopathy, lumbar region (principal)
CPT/HCPCS: 64483; J1100; J2003; Q9967

== ENCOUNTER 2025-08-29 09:34 | Outpatient (AMB) | payer BC, SELFPAY ==
[2025-08-29 09:49] VITALS: BP 100/68; PULSE 79; RESP 16; O2SAT 98
--- NOTE | 2025-08-29 09:49 | A.OFFVIS_ITS ---
Vital Signs 08/29/25 09:49 08/29/25 10:24 BP 100/68 120/76 Blood Pressure Location Lt brachial Lt brachial Position Sitting Sitting Respiration 16 16 Pulse 79 87 Pulse Source Pulse Oximeter Pulse Oximeter Pulse Oximetry (%) 98 98 Oxygen Delivery Method Room Air Room Air Intake Visit Reasons: Right L4-L5-S1 TFESI Economics Department Chair Required: No Allergies ibuprofen (From ADVIL) Allergy (Intermediate, Verified 08/29/25 09:50) STOMACH PAIN latex (LATEX) Allergy (Intermediate, Verified 08/29/25 09:50) RASH Penicillins Allergy (Verified 08/29/25 09:50) Hives Medication List - Last Reconciled 08/29/25 by Claudia Kapoor LPN ascorbate calcium (vitamin C) 500 mg PO DAILY cetirizine 10 mg PO DAILY PRN cyclobenzaprine 10 mg PO BID PRN escitalopram oxalate 5 mg PO DAILY hydroxyzine HCl 25 mg PO BEDTIME ibuprofen 600 mg PO Q8H PRN lansoprazole 30 mg PO DAILY mecobalamin (vitamin B12) 1,000 mcg PO DAILY multivitamin 1 tab PO DAILY nystatin 1 appl topical TID sildenafil (Viagra) 25 mg PO DAILY PRN tirzepatide (weight loss) (Zepbound) 12.5 mg subcut QWEEK HPI HPI Right L4-L5-S1 TFESI: Details: Patient presents for scheduled procedure. Denies any recent cough, cold, infection, fever or other significant changes in medical history since last office visit. PFSH Medical History (Updated 07/13/25 @ 23:58 by GUILLERMO Bailon) Low back pain Left knee pain Low HDL (under 40) Vitamin D deficiency History of Yjcib-Zeseegibj-Dklxn (WPW) syndrome Chronic GERD Anxiety disorder On pre-exposure prophylaxis for HIV Elevated LFTs Surgical History (Updated 07/11/25 @ 13:26 by Kacie Rangel) Hx of cholecystectomy Status post sleeve gastrectomy Social History (Updated 07/11/25 @ 13:26 by Kacie Rangel) Patient Tobacco Use Status: Never used Tobacco Physical Exam Vital Signs: Last Vital Signs Pulse 87 08/29/25 10:24 Resp 16 08/29/25 10:24 BP 120/76 08/29/25 10:24 Pulse Ox 98 08/29/25 10:24 Oxygen Delivery Method Room Air 08/29/25 10:24 Office Procedures Details: Transforaminal epidural steroid injection, Right L5/S1 After obtaining written consent, pre-procedure blood pressure and heart rate were stable and recorded in the nursing record. The patient was placed in the prone position on the fluoroscopy table. The lum bosacral area was prepped with chloraprep, allowed to dry and draped in sterile fashion. Using fluoroscopy, the skin overlying our target was anesthetized with 0.5% lidocaine. A 22 gauge 3.5 inch spinal needle was advanced to the safe triangle in the upper pole of the right L5 foramen. No paresthesias were elicited with needle placement and aspiration was negative for blood and CSF. Correct needle position was confirmed with approximately 1 ml contrast dye (Omnipaque 180 mg/ml) injected under real-time fluoroscopy. No evidence of vascular or intrathecal uptake was seen and there was both epidural and peripheral spread of the contrast agent. 10 mg dexamethasone plus 1 ml containing 0.5% lidocaine was slowly injected. The needle was flushed and removed. The skin was cleansed and a sterile bandages were applied. The patient tolerated the procedure well and no complications were encountered. Following the procedure the patient's vital signs were stable. The patient was discharged home in good condition with post-procedural instructions. Time Out: Immediately prior to the procedure, the following was verbally confirmed that there is a signed consent form and that the correct patient, planned procedure, site and side are consistent with documentation and that necessary equipment and/or blood products are available prior to the start of the case. Complications: none EBL: <5 cc 94593 - Lumbar/Sacral Procedure code (CPT) selection complete Assessment & Plan Assessment & Plan (1) Lumbar disc herniation with radiculopathy: Code(s): M51.16 - Intervertebral disc disorders with radiculopathy, lumbar region Category: Medical Plan Patient is status post right L5-S1 TFESI. Based on MRI review we decided not to inject the L4-5 level. Patient tolerated procedure well and was discharged home in stable condition with discharge instructions. All questions were answered. MRI shows significant lumbar facet arthritis out of proportion with the patient's age. May benefit from interventions targeted towards the lumbar facets in the future. Orders: Orders FL guidance in treatment room Today Megan Ceballos, ENVIRONMENTAL SERVICES COORDINATOR, [employer] MANAGER M51.16 - Intervertebral disc disorders with radiculopathy, lumbar region AMB Transforaminal Epidural Steroid Injection Today Rustam Alegria MD M54.16 - Radiculopathy, lumbar region Coding Level of Care Code Procedure Only Diagnoses Lumbar disc herniation with radiculopathy M51.16 CPT Codes Transforaminal Epidural Steroid Inj - TESI 3: 86482 - Lumbar/Sacral ([id number])
[2025-08-29 10:24] VITALS: BP 120/76; PULSE 87; RESP 16; O2SAT 98
== END 2025-08-29 10:24 | disposition home or self-care (01) ==
LOC: HO.PMCPRC 09:34
PROVIDERS: PCP Nurse Practitioner Family; Visit Provider Internal Medicine
DX: M51.16 Intervertebral disc disorders with radiculopathy, lumbar region (principal)
CPT/HCPCS: 64483

== ENCOUNTER 2025-09-24 09:59 | Outpatient (AMB) | payer BC, SELFPAY ==
--- NOTE | 2025-09-24 10:03 | MHC.OFFVIS ---
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 Prior to the injection, the patient experienced right leg pain on a daily basis. Since the procedure, the patient reports significant improvement, with pain frequency reduced to one or two days per week. The patient also notes improved function, including the ability to walk and stand for longer durations. At today's visit, the patient reports the right leg pain is resolved but continues to experience back pain, rated at a 6/10 severity. Past Procedures: 08/29/25: Right L5-S1 TFESI - 90-100% ongoing right leg pain relief, mild back pain relief PRIOR: The patient is a 30-year-old male presenting with low back pain. The pain began approximately 2-3 months ago during increased physical activity related to renovating his home. He developed right-sided low back pain radiating to his right leg. The pain is described as constant, throbbing, stabbing, sharp, radiating, spreading, tight, squeezing, and aching. It is exacerbated by walking, bending, twisting, lifting, and weather changes, and he rates the pain as 10 out of 10. The patient has tried ibuprofen and Decadron with minimal and temporary relief. He is currently undergoing physical therapy and has seen a chiropractor without significant pain relief. The patient denies any significant weakness, bladder or bowel dysfunction or saddle anesthesia. Patient denies previous spine surgery or injections. He was evaluated by [facility] and recommended to undergo a course of cortisone injections for symptomatic relief. - Onset: Approximately 2-3 months ago during home renovation activities - Quality: Constant, throbbing, stabbing, sharp, radiating, spreading, tight, squeezing, aching - Location: Right-sided low back pain radiating to the right leg - Exacerbating factors: Walking, bending, twisting, lifting, weather changes - Severity: Rated as 10/10 - Affect: Pain affects his sleep, mood, social interactions, mobility and daily functioning - Analgesia: Current medications include ibuprofen and Decadron with minimal relief; pain rated 10/10 - Adverse Effects: None reported - Activities of Daily Living: Pain interferes with walking, bending, twisting, lifting - Aberrant Drug Related Behaviors: None reported [facility] Jaxson Foster PA-C 06/13/25: Imaging review: MRI of the lumbar spine completed here at [facility] shows some posterior disc bulging at L4-5, L5-S1. There is mild-moderate right-sided foraminal stenosis L4-5, and moderate right-sided foraminal stenosis at L5-S1 as a result of the disc bulging. Impression: Madalyn is a pleasant 30-year-old male who comes in today for evaluation of low back pain and shooting pain in his right lower extremity beginning in February of this year. He identifies an inciting incident of increased activity when moving into / renovating his home. He certainly has some degree of right-sided foraminal stenosis result of the posterior disc bulging seen at L4-5 and L5-S1. In our younger patients in his very common for her disc bulging/disc herniations to resorb on their own over time without surgical intervention. In the absence of profound numbness or weakness on examination, I believe the patient would be best served by attempting a course of cortisone injections with our colleagues in pain management. I will place the referral for him. [facility] Medical History (Updated 07/13/25 @ 23:58 by GUILLERMO Bailon) Low back pain Left knee pain Low HDL (under 40) Vitamin D deficiency History of Abhyd-Cklpodmsj-Yjxvd (WPW) syndrome Chronic GERD Anxiety disorder On pre-exposure prophylaxis for HIV Elevated LFTs Surgical History (Updated 07/11/25 @ 13:26 by Kacie Rangel) Hx of cholecystectomy Status post sleeve gastrectomy Social History (Updated 07/11/25 @ 13:26 by Kacie Rangel) Patient Tobacco Use Status: Never used Tobacco Review of Systems Const All systems reviewed & are unremarkable except as noted in HPI and below Physical Exam Vital Signs: Last Vital Signs Pulse 95 09/24/25 10:07 BP 140/68 H 09/24/25 10:07 Pulse Ox 100 09/24/25 10:07 Oxygen Delivery Method Room Air 09/24/25 10:07 BMI result Body Mass Index 28.6 General: Appears afebrile. Alert and oriented. Mood and affect appropriate. Follows and participates in conversation appropriately. Respiratory effort is unlabored. No cough. Able to transition from sit to stand unassisted. Ambulates with bilaterally normal heel strike and toe off. General: Yes no CVA tenderness Back/Spine/Pelvis Back: no CVA tenderness Cervical Spine: cervical ROM normal and No Cervical spine tenderness Thoracic/Lumbar Spine: thoracic and lumbar spine normal to inspection, No Thoracic/lumbar spine scar(s), Lasegue's sign negative, straight leg raise negative bilaterally, pain with thoraco-lumbar ROM, paraspinal muscle tenderness on the right greater than left, thoraco-lumbar ROM limited, No thoracic spinal tenderness and lumbar spinal tenderness (L4-S1) Sacroiliac joints: on the right tender to palpation and on the left nontender Results Reviewed Results Reviewed: MR lumbar spine wo con 06/03/25 CLINICAL HISTORY: back pain radiate to right leg, urinary retention Comparison: None Findings: L4-5 and L5-S1 disc compression with right-sided disc herniation resulting in right-sided foraminal stenosis. No acute fracture or pathologic bone lesion. Conus medullaris within normal limits. No significant degenerative change. Paraspinous musculature intact. IMPRESSION: L4-5 and L5-S1 disc compression with right-sided disc herniation resulting in right-sided foraminal stenosis Assessment & Plan Assessment & Plan (1) Low back pain: Code(s): M54.50 - Low back pain, unspecified Category: Medical (2) Lumbar disc herniation with radiculopathy: Code(s): M51.16 - Intervertebral disc disorders with radiculopathy, lumbar region Category: Medical (3) Neuroforaminal stenosis of lumbar spine: Code(s): M48.061 - Spinal stenosis, lumbar region without neurogenic claudication Category: Medical Plan The patient has experienced significant, 90-100% relief of right-sided radiculopathy following a right L5-S1 transforaminal epidural steroid injection. Patient will continue to monitor his symptoms and if the sciatic leg pain returns to baseline, a repeat injection can be scheduled in 3 months. For axial back pain, conservative management is recommended. This includes the use of ckbv-pci-qtmqxhz analgesics such as Tylenol or ibuprofen, application of heat, and avoidance of strenuous activities. The importance of movement, continuing physical therapy, and home exercises was emphasized to prevent worsening of symptoms from prolonged static postures. Also discussed diagnostic lumbar medial branch blocks for potential RFA or Sprint PNS trial if axial low back pain is persistent and resistant to conservative management. All questions and concerns have been answered and patient agreed with the treatment plan. Follow up as needed. Patient was informed and verbally consented to the use of an ambient scribe for clinic note documentation during this visit. Coding Level of Care Code Est Pt Level 3 (23502) Diagnoses Low back pain M54.50 Lumbar disc herniation with radiculopathy M51.16 Neuroforaminal stenosis of lumbar spine M48.061
[2025-09-24 10:07] VITALS: BP 140/68; PULSE 95; O2SAT 100; BMI 28.6
--- OUTSIDE RECORDS SUMMARY | 2025-09-24 12:00 | XMS_ITS | Clinical Summary ---
Author Organization [facility] Address [address] [place] [phone] Phone Care Team Providers Care Burner Hand Name Role Phone Elli Calvillo MD Primary Care Provider [phone] Allergies Active Allergy Reactions Criticality Noted Date [...] file Medical Devices Not on file Insurance [facility] Care Teams Burner Hand Relationship Specialty Start Date End Date Elli Calvillo MD [address] [place] [phone] PCP - General Internal Medicine 10/26/19 Additional Source Comments The information contained in this document represents components of the legal health record. It is not the complete legal health record.[facility]
--- OUTSIDE RECORDS SUMMARY | 2025-09-24 12:00 | XMS_ITS | Clinical Summary ---
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 UPPER GASTROINTESTINAL ENDOSCOPY 2015 PROCEDURE: [place] UPPER GI ENDOSCOPY PERFORMED; COMMENT: Justice; investigaiton of heartburn UPPER GASTROINTESTINAL ENDOSCOPY 12/19/2020 PROCEDURE: [place] UPPER GI ENDOSCOPY PERFORMED; COMMENT: Visually normal on current treatment with pantoprazole 40 mg once a day. 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:Rluuf-Wjxojpxpo-Wsvkw syndrome; COMMENT: S/p ablation 03/2015 GERD (gastroesophageal [...] Results * (ABNORMAL) Lipid panel (05/09/2023) Pathologist [facility] LDL/HDL Ratio 4 0 - 4 Triglycerides 136 0 - 150 mg/dL Cholesterol 148 0 - 200 mg/dL HDL 39(A) >=40 mg/dL LDL Cholesterol 82 0 - 100 mg/dL Blood Venous blood specimen / Unknown Historical Provider LAB BLOOD ORDERABLES Wendy l Result * HIV Screening (03/02/2022) Pathologist [facility] HIV Screening Abstracted Historical Provider HEALTH MAINTENANCE Final Result * Hepatitis C Screening (03/02/2022) Pathologist [facility] Hepatitis C Screening Abstracted Historical Provider HEALTH MAINTENANCE Final Result from Last 3 Months or Most Recently Relevant to Health Maintenance Insurance [facility] Care Teams Toeing Stockings Relationship Specialty Start Date End Date Fany Daniel NP [address] [place] [phone] PCP - General 12/24/24
== END 2025-09-24 10:32 | disposition home or self-care (01) ==
LOC: HO.PMC 10:00
PROVIDERS: PCP Nurse Practitioner Family; Visit Provider Nurse Practitioner Family
DX: M54.50 Low back pain, unspecified (principal); M51.16 Intervertebral disc disorders with radiculopathy, lumbar region; M48.061 Spinal stenosis, lumbar region without neurogenic claudication
CPT/HCPCS: 99213